=== PATIENT | female | born 1975 | race Caucasian/White ===

== ENCOUNTER 2016-10-25 18:54 | Emergency (ER) | payer OTHER ==
[~2016-10-25] VITALS: Ht 160 cm; Wt 99.8 kg
[2016-10-25 19:03] VITALS: BP 110/90
--- NOTE | 2016-10-25 19:20 | NUR ---
PT TAKEN TO BED 4
--- NOTE | 2016-10-25 19:22 | NUR ---
40 y/o M W/C/O LUMPS UNDERKNEE BILATERAL BUTTOCKS, LOWER BACK PAIN, LEG AND ARM PAIN FOR 4 DAYS. DENIES ANY TRAUMA OR INJURY. NO S/S OF DISTRESS NOTED AT THE MOMENT. ER MD MADE AWARE.
--- NOTE | 2016-10-25 19:30 | NUR ---
Dr. Mata evaluating patient at bedside.
[2016-10-25] MEDS ORDERED: KETOROLAC 30 MG/ML VIAL IM ONE (19:35)
[2016-10-25] MEDS ORDERED: HYDROmorphone 1 MG/ML AMP IM ONE (19:35)
[2016-10-25] MEDS ORDERED: DIAZEPAM 5 MG TAB PO ONE (19:35)
--- NOTE | 2016-10-25 19:50 | NUR ---
PT RESTING IN BED, VSS. WILL CONT TO MONITOR.
[2016-10-25 20:05] VITALS: BP 122/72
--- NOTE | 2016-10-25 20:05 | NUR ---
Patient discharged with v/s stable. Written and verbal after care instructions given and explained. Patient alert, oriented and verbalized understanding of instructions. Ambulatory with steady gait. All questions addressed prior to discharge. ID band removed. Patient advised to follow up with PMD TOMORROW. Rx of NORCO given. Patient educated on indication of medication including possible reaction and side effects. Opportunity to ask questions provided and answered.
== END 2016-10-25 20:05 | disposition home or self-care (01) ==
LOC: MED 18:54
DX: M54.42 Lumbago with sciatica, left side (principal); M54.41 Lumbago with sciatica, right side; R03.0 Elevated blood-pressure reading, without diagnosis of hypertension; Z88.6 Allergy status to analgesic agent; F17.210 Nicotine dependence, cigarettes, uncomplicated; Z71.6 Tobacco abuse counseling
CPT/HCPCS: 81002; 96372; 99284; J1170; J1885

== ENCOUNTER 2016-11-02 13:51 | Emergency (ER) | payer OTHER ==
[~2016-11-02] VITALS: Ht 160 cm; Wt 97.3 kg
[2016-11-02 14:05] VITALS: BP 110/74
--- NOTE | 2016-11-02 15:15 | NUR ---
40F BIB SELF PRESENT TO ER C/O 10/08 INTERMITTENT "SHARP" NON-RADIATING RIGHT LOWER BACK PAIN x 2 MONTHS; PT HAS HX OF CHRONIC BACK PAIN; PT DENIES ANY RECENT INJURY OR FALLS; DENIES N/V/D; SKIN IS PINK/WARM/DRY; AAOX4 WITH EVEN AND STEADY GAIT WITH WALKER; RR ARE EVEN AND UNLABORED; VSS; PATIENT POSITIONED FOR COMFORT; HOB ELEVATED; BEDRAILS UP X2; BED DOWN. ER MD MADE AWARE OF PT STATUS.
[2016-11-02] MEDS ORDERED: KETOROLAC 60 MG/2 ML VIAL IM ONE (15:35)
[2016-11-02 16:03] VITALS: BP 108/70
--- NOTE | 2016-11-02 16:03 | NUR ---
Patient discharged with v/s stable. Written and verbal after care instructions given and explained. Patient alert, oriented and verbalized understanding of instructions. Ambulatory with steady gait. All questions addressed prior to discharge. ID band removed. Patient advised to follow up with PMD. Rx of Corral #5 given. Patient educated on indication of medication including possible reaction and side effects. Opportunity to ask questions provided and answered.
== END 2016-11-02 16:03 | disposition home or self-care (01) ==
LOC: MED 13:51
DX: G89.29 Other chronic pain (principal); M54.5 Low back pain; F17.210 Nicotine dependence, cigarettes, uncomplicated; Z88.8 Allergy status to other drugs, medicaments and biological substances
CPT/HCPCS: 96372; 99283; J1885